=== PATIENT | male | born 1955 | race Caucasian/White ===

== ENCOUNTER 2016-07-26 21:52 | Emergency (ER) | payer BC ==
[~2016-07-26] VITALS: Ht 185.4 cm; Wt 104.3 kg
[~2016-07-26 21:52] MED LIST: ALPR0.254 PO; AMLO5TAB2 PO; ASCO500T2 PO; ASPI81TA2 PO; CALC-98 PO; ENAL20TA PO; ESCI10TA PO; HYDR12.58 PO; MULT1TAB52 PO
[2016-07-26] MEDS ORDERED: DEXAMETHASONE SOD PHOS 4 MG/ML VIAL IM ONE (22:30)
[2016-07-26] MEDS ORDERED: DIPHENHYDRAMINE HCL 25 MG CAPSULE PO ONE (22:30)
[2016-07-26] MEDS ORDERED: HYDROCODONE/APAP 5/325MG TABLET. PO ONE (23:45)
--- NOTE | 2016-07-26 23:59 | RAD ---
PROCEDURE Scrotal ultrasound 07/26/2016. HISTORY Scrotal swelling and pain. History of a rash for 1 week. TECHNIQUE COMPARISON FINDINGS The testes have normal echogenicity. There is increased blood flow bilaterally. There is also a heterogeneous swollen appearance of the epididymides, which also are hypervascular. Small hydroceles are seen on each side. There is no evidence of a scrotal abscess. There appears to be some swelling of the spermatic cords bilaterally as well. IMPRESSION Findings suggest bilateral epididymal orchitis. There is no evidence of testicular torsion or scrotal abscess. Electronically signed by: Harvey Pride (Jul 26, 2016 23:58:19)
[2016-07-27 00:13] LABS: BASO % 0 % (0-3); EOS % 1 % (0-3); HEMATOCRIT 44.9 % (39.0-53.0); HEMOGLOBIN 15.5 g/dL (13.0-17.5); LYMPH # 2.4 x10^3/uL (1.0-4.8); LYMPH % 30 % (24-48); MEAN CORPUSCULAR HEMOGLOBIN 32 pg (25-35); MEAN CORPUSCULAR HGB CONC 34 g/dL (31-37); MEAN CORPUSCULAR VOLUME 93 fL (79-100); MONO % 6 % (0-9); NEUT % 63 % (31-73); PLATELET COUNT 424 x10^3/uL (140-400); RED BLOOD COUNT 4.82 x10^6/uL (4.30-5.70); RED CELL DISTRIBUTION WIDTH 13.4 % (11.5-14.5)
[2016-07-27 00:22] LABS: PROTHROMBIN TIME PATIENT 12.7 SEC (11.7-14.0)
[2016-07-27 00:28] LABS: CALCIUM 8.9 mg/dL (8.5-10.1); CREATININE 1.1 mg/dL (0.7-1.3); GFR 68.1; POTASSIUM 3.8 mmol/L (3.5-5.1)
[2016-07-27 00:47] LABS: BILIRUBIN,URINE NEGATIVE (NEG); GLUCOSE,URINE NEGATIVE (NEG); NITRITE,URINE NEGATIVE (NEG); PROTEIN,URINE NEGATIVE (NEG-TRACE)
[2016-07-27] MEDS ORDERED: LEVO500T38 PO (01:02)
--- NOTE | 2016-07-27 01:02 | PHYS DOC ---
Past Medical History Past Medical History: Hypertension, Other Additional Past Medical Histor: spinal stenosis, PACEMAKER Past Surgical History: Other Additional Past Surgical Histo: back, spleenectomy, PACEMAKER Alcohol Use: Occasionally Drug Use: None Adult General Chief Complaint Chief Complaint: SKIN PROBLEM HPI HPI Patient is a 60 year old male who presents with leg rash & testicular pain. The patient reports 4 day history of painful red lesions to bilateral lower legs , now with itchy rash to left elbow, more new lesions to legs & abdomen, also having bilateral testicular pain & swelling. He also states this morning he had marked lip & tongue swelling that has since resolved completely. He denies fevers/chills, difficulty breathing, abdominal pain, nausea, vomiting, dysuria/ hematuria. Saw his PCP Dr. Collins at time of symptom onset & given prescription for prednisone which he has been taking as prescribed. He denies any new medications or environmental exposure. No history of previous similar symptoms. He takes enalapril for HTN. Review of Systems Review of Systems Constitutional: Denies fever or chills Eyes: Denies change in visual acuity HENT: Denies nasal congestion or sore throat, reports facial swelling now resolved. Respiratory: Denies cough or shortness of breath Cardiovascular: Denies chest pain GI: Denies abdominal pain, nausea, vomiting, or diarrhea : Denies dysuria or hematuria, reports testicular pain & swelling. Musculoskeletal: Denies back pain or joint pain Integument: Reports rash & skin lesions Neurologic: Denies headache, focal weakness or sensory changes Current Medications Current Medications Current Medications Medications (Trade) Dose Ordered Sig/Shanelle Start Time Stop Time Status Last Admin Dose Admin Acetaminophen/ Hydrocodone Bitart (Lortab 5/325) 2 tab 1X ONCE 07/26/16 23:45 07/26/16 23:46 DC 07/26/16 23:55 2 TAB Dexamethasone Sodium Phosphate (Decadron) 10 mg 1X ONCE 07/26/16 22:30 07/26/16 22:31 DC 07/26/16 22:29 10 MG Diphenhydramine HCl (Benadryl) 25 mg 1X ONCE 07/26/16 22:30 07/26/16 22:31 DC 07/26/16 22:29 25 MG Allergies Allergies Allergies Coded Allergies Type Severity Reaction Last Updated Verified No Known Drug Allergies 08/07/13 No Physical Exam Physical Exam Constitutional: Well developed, well nourished, no acute distress, non-toxic appearance. HENT: Normocephalic, atraumatic, bilateral external ears normal, oropharynx moist, nose normal. no face/tongue/lip swelling, airway patent. Eyes: conjunctiva normal, no discharge. Neck: supple, no stridor. Cardiovascular: RRR, no murmurs, no edema. Lungs & Thorax: LCTAB, no wheezing, no respiratory distress. Abdomen: soft, nontender, nondistended. : bilateral scrotal swelling with testicular tenderness bilaterally, no masses, no inguinal mass, no lesions, no erythema/warmth/swelling. Skin: nonblanching erythematous lesions scattered over lower extremities & abdomen. urticaria over left AC. Back: No tenderness. Extremities: No tenderness, no edema. Neurologic: Alert and oriented X 3 Current Patient Data Vital Signs Vital Signs Date Time Temp Pulse Resp B/P Pulse Ox O2 Delivery O2 Flow Rate FiO2 07/27/16 01:11 81 18 133/75 94 Room Air 07/26/16 21:56 96.1 96.1 Lab Values Laboratory Tests Test 07/26/16 23:50 07/26/16 23:53 Urine Collection Type Unknown Urine Color Yellow Urine Clarity Clear Urine pH 6.0 Urine Specific Channing 1.020 Urine Protein Negativemg/dL (NEG-TRACE) Urine Glucose (UA) Negativemg/dL (NEG) Urine Ketones (Stick) Negativemg/dL (NEG) Urine Blood Negative (NEG) Urine Nitrite Negative (NEG) Urine Bilirubin Negative (NEG) Urine Urobilinogen Dipstick 1.0mg/dL (0.2 mg/dL) Urine Leukocyte Esterase Negative (NEG) Urine RBC 6-10/HPF (0-2) Urine WBC 1-4/HPF (0-4) Urine Squamous Epithelial Cells Occ/LPF Urine Bacteria 0/HPF (0-FEW) Urine Mucus Marked/LPF White Blood Count 8.0x10^3/uL (4.0-11.0) Red Blood Count 4.82x10^6/uL (4.30-5.70) Hemoglobin 15.5g/dL (13.0-17.5) Hematocrit 44.9% (39.0-53.0) Mean Corpuscular Volume 93fL (79-100) Mean Corpuscular Hemoglobin 32pg (25-35) Mean Corpuscular Hemoglobin Concent 34g/dL (31-37) Red Cell Distribution Width 13.4% (11.5-14.5) Platelet Count 424x10^3/uL (140-400) H Neutrophils (%) (Auto) 63% (31-73) Lymphocytes (%) (Auto) 30% (24-48) Monocytes (%) (Auto) 6% (0-9) Eosinophils (%) (Auto) 1% (0-3) Basophils (%) (Auto) 0% (0-3) Neutrophils # (Auto) 5.1x10^3uL (1.8-7.7) Lymphocytes # (Auto) 2.4x10^3/uL (1.0-4.8) Monocytes # (Auto) 0.5x10^3/uL (0.0-1.1) Eosinophils # (Auto) 0.0x10^3/uL (0.0-0.7) Basophils # (Auto) 0.0x10^3/uL (0.0-0.2) Prothrombin Time 12.7SEC (11.7-14.0) Prothrombin Time INR 1.0 (0.8-1.1) PTT 27SEC (24-38) Sodium Level 138mmol/L (136-145) Potassium Level 3.8mmol/L (3.5-5.1) Chloride Level 99mmol/L (98-107) Carbon Dioxide Level 30mmol/L (21-32) Anion Gap 9 (6-14) Blood Urea Nitrogen 24mg/dL (8-26) Creatinine 1.1mg/dL (0.7-1.3) Estimated GFR (Cockcroft-Gault) 68.1 Glucose Level 155mg/dL (70-99) H Calcium Level 8.9mg/dL (8.5-10.1) Laboratory Tests 07/26/16 23:53 Laboratory Tests 07/26/16 23:53 EKG EKG [] Radiology/Procedures Radiology/Procedures PROCEDURE: TESTICULAR/SCROTUM PROCEDURE Scrotal ultrasound 07/26/2016. HISTORY Scrotal swelling and pain. History of a rash for 1 week. TECHNIQUE COMPARISON FINDINGS The testes have normal echogenicity. There is increased blood flow bilaterally. There is also a heterogeneous swollen appearance of the epididymides, which also are hypervascular. Small hydroceles are seen on each side. There is no evidence of a scrotal abscess. There appears to be some swelling of the spermatic cords bilaterally as well. IMPRESSION Findings suggest bilateral epididymal orchitis. There is no evidence of testicular torsion or scrotal abscess. Electronically signed by: Arabella Pride (Jul 26, 2016 23:58:19) DICTATED and SIGNED BY: ARABELLA PRIDE Jr, MD DATE: 07/26/16 9624 [] Course & Med Decision Making Course & Med Decision Making Pertinent Labs and Imaging studies reviewed. (See chart for details) The patient presents with vasculitis & testicular pain, also history of symptoms suggesting angioedema earlier today. No facial swelling at this time. He does appear to have a small area of urticaria in addition to the vasculitic lesions to lower extremities. Gave decadron, benadryl, & pain medication here. US shows epididymoorchitis bilaterally. The patient is well appearing, more comfortable after pain medication. Recommended that he discontinue enalapril due to history that suggests angioedema, continue prednisone & benadryl. Gave prescription for levaquin for epididymitis, recommend follow up with Dr. Stanley in the urology clinic. Early in his visit, I did briefly discuss with Dr. Collins & she is able to see the patient on Thursday for follow up. Patient instructed to return for high fever, severe abdominal pain, uncontrolled vomiting, face/tongue/lip swelling, difficulty breathing, any otherwise worsening condition. Discharged home in stable condition. [] Dragon Disclaimer Dragon Disclaimer This electronic medical record was generated, in whole or in part, using a voice recognition dictation system. Departure Departure Impression: Primary Impression: Epididymitis, bilateral Additional Impressions: Vasculitis Urticaria Disposition: HOME, SELF-CARE Condition: STABLE Referrals: MARY ANN COLLINS MD (PCP) FLAKO STANLEY DO Patient Instructions: Angioedema, Enjt-ot-Lzve, Epididymitis, Orchitis, Vasculitis Additional Instructions: You were seen in the emergency department today for several problems. You have vasculitis. Please continue taking the prescribed prednisone from Dr. Collins. There may also be an adverse reaction to the enalapril that you take for your blood pressure. Please immediately stop taking this medication. The ultrasound showed infection of the epididymis and inflammation of your testicles. Please take the prescribed antibiotic. Wear supportive undergarments. Follow-up with Dr. Collins on Thursday if possible. Also follow up with Dr. Stanley in the urology clinic in about 1 week. Return to the emergency department for face/tongue/lip swelling, difficulty breathing, severe abdominal pain, uncontrolled vomiting, any otherwise worsening condition. Scripts Hydrocodone/Apap 5-325 (Holden 5-325 Tablet)1 Each Tablet1 Tab PO PRN Q6HRS PRN PAIN #10 TAB Prov:NADINE WEBER MD 07/27/16 Levofloxacin (Levaquin)500 Mg [id number] Mg PO BID #20 TAB Prov:NADINE WEBER MD 07/27/16 Problem Qualifiers NADINE WEBER MD Jul 27, 2016 01:02
[2016-07-27] MEDS ORDERED: HYDR-971 PO (01:05)
[2016-07-27 01:11] VITALS: BP 133/75
[2016-07-27 01:13] LABS: BACTERIA,URINE 0 /HPF (0-FEW); SQUAMOUS EPITHELIAL CELL,UR OCC /LPF
== END 2016-07-27 01:12 | disposition home or self-care (01) ==
LOC: ER 21:52
DX: N45.1 Epididymitis (principal); I77.6 Arteritis, unspecified; L50.9 Urticaria, unspecified; I10 Essential (primary) hypertension; M48.00 Spinal stenosis, site unspecified; Z90.81 Acquired absence of spleen; Z95.0 Presence of cardiac pacemaker; Z98.890 Other specified postprocedural states
CPT/HCPCS: 36415; 76870; 80048; 81001; 85027; 85610; 85730; 96372; 99285; J1100; Q0163

== ENCOUNTER → 2017-11-02 | Outpatient (CLI) | payer BC | END | disposition home or self-care (01) | LOC: RT 10:01 | DX: G47.33 Obstructive sleep apnea (adult) (pediatric) (principal); G47.34 Idiopathic sleep related nonobstructive alveolar hypoventilation; I10 Essential (primary) hypertension; E78.5 Hyperlipidemia, unspecified; E78.00 Pure hypercholesterolemia, unspecified | CPT/HCPCS: G0399 ==

== ENCOUNTER → 2017-12-10 | Outpatient (CLI) | payer BC ==
[~2017-12-10] MED LIST changes: -AMLO5TAB2 PO; +AMLO5TAB7 PO; +ASPI-630 PO; -ASPI81TA2 PO; -ESCI10TA PO; +ESCITALOPRAM OX10 MG PO; +HYDR-971 PO; +LEVO500T59 PO
--- NOTE | 2017-12-15 10:36 | SLEEP ---
DATE OF STUDY: 12/10/2017 ATTENDING PHYSICIAN: Dr. Collins. The patient is a 62-year-old who weighs 245 pounds with a BMI of 32. The patient has severe subjective hypersomnia with an Milford score of 17. The patient had a home sleep study on 11/04/2017 and was found to have severe OTILIO at an AHI of 38 per hour. The patient returned to sleep lab for in-lab titration study. During the night study, the patient spent 413 minutes in bed and slept for 381 minutes with a sleep efficiency of 92%. Sleep latency was 5 minutes with a REM latency of 159 minutes. Overall, sleep architecture showed normal stage 1 and stage 2 sleep, increased slow wave and normal REM sleep. EKG monitoring revealed normal sinus rhythm. Average heart rate was 72 beats per minute, no sustained arrhythmias were observed. PLMS were seen at an index of 97 per hour and 9 per hour caused EEG arousals. The patient was started on CPAP at 5 cm water and titrated up to 11 cm water. At the final pressure, the patient slept for 193 minutes. The patient had supine as well as REM sleep. The patient's AHI was reduced to 0 per hour and oxygen saturations remained above 92%. The patient used a medium size nasal mask. IMPRESSION: 1. Severe sleep apnea diagnosed by home sleep study. 2. Severe PLMS at an index of 97 per hour and 9 per hour caused EEG arousals. RECOMMENDATIONS: 1. CPAP at 11 cm water should be used on a nightly basis. It completely eliminated the patient's sleep apnea. 2. Follow up in 4-6 weeks to assess compliance with CPAP and to document clinical improvement. 3. Weight loss is strongly advised. 4. Avoid SENIOR CLINICAL DATA COORDINATOR depressants. 5. Caution regarding driving until symptoms of sleep apnea resolve with the use of CPAP. 6. The patient should also be further evaluated for symptoms of restless legs during the day. CORY DE LEON MD DR: ZAYRA/danielle JOB#: [id number] / [id number] MARY ANN Garcia MD
== END | disposition home or self-care (01) ==
LOC: RT 18:44
PROVIDERS: ATTEND Family Medicine
DX: G47.33 Obstructive sleep apnea (adult) (pediatric) (principal); G47.61 Periodic limb movement disorder; I10 Essential (primary) hypertension; E78.00 Pure hypercholesterolemia, unspecified; Z86.010 Personal history of colon polyps; Z95.0 Presence of cardiac pacemaker; Z90.81 Acquired absence of spleen
CPT/HCPCS: 95811

== ENCOUNTER → 2018-02-08 | Day surgery (SDC) | payer BC ==
[~2018-02-08] VITALS: Ht 185.4 cm; Wt 109.3 kg
[~2018-02-08] MED LIST changes: +ATOR10TA60 PO; +CARV6.252 PO; +CETI10TA16 PO; +DESFLURANE 31 TO 60 MINUTES IH ONE; +DEXAMETHASONE SOD PHOS 20 MG/5 ML VIAL. ONE; +FAMOTIDINE 20 MG/2 ML VIAL ONE; +HYDROmorphone 2 MG/ML VIAL IV PRN; +LIDOCAINE 1% PF 2 ML VIAL. ID PRN; +LIDOCAINE 2% PF Vial for OR 5 ML VIAL. ONE; +METF500T16 PO; +MIDAZOLAM HCL/PF 2 MG/2 ML VIAL. ONE; +MORPHINE SULFATE 2 MG/ML VIAL. IV PRN; +ONDANSETRON PF 4 MG/2 ML VIAL. ONE; +PRAM0.255 PO; +PROCHLORPERAZINE 10 MG/2 ML VIAL. IV PRN; +PROPOFOL 20 ML IV ONE; +SUCCINYLCHOLINE 200 MG/10 ML VIAL. ONE; +ePHEDrine PF IN SALINE 50 MG/5 ML DISP.SYRIN IV ONE; +fentaNYL PF VIAL 100 MCG/2 ML VIAL IV PRN; +fentaNYL PF VIAL 100 MCG/2 ML VIAL ONE
[2018-02-08] MEDS: IV RINGERS,LACTATED 1000ML 1,000 ML IV SCH ×3 (08:09→08:19)
--- NOTE | 2018-02-08 10:57 | PDOC4 ---
Operative Note Operative Note Operative Note: Preoperative Diagnosis: Posterior neck, back masses Postoperative Diagnosis: Same Procedure: Excision of posterior neck, back masses Surgeon: Cal Anesthesia: Gen. EBL: 10 mL Specimen: posterior neck mass, 6 X 4.5 cm, back mass 6 X 3.5 cm Drains: none Complications: none Indication: The patient is a 62-year-old male who is referred due to symptomatic masses one located in the posterior neck and the other in the upper back toward the right. He was offered surgical resection. The risks of surgery were discussed which include bleeding, infection, recurrence, pain, potential need for additional surgery or procedure. He understands and would like to proceed. Description: The patient was taken to the operating room and placed supine on the operating table. Gen. anesthesia was performed. He was then placed with his left side down using a sheth bag on the operating table. One mass was located near the midline along the posterior neck the other in the upper back just to the right of midline. We were able to prep both areas together using ChloraPrep and he was draped in a standard surgical manner. A transverse incision was made initially overlying the skin of the posterior neck mass. Combination of cautery and sharp dissection were carried down to the mass. The mass was mobilized from the surrounding tissues and was comprised of adipose tissue consistent with a lipoma. The mass was fully excised and measured 6 x 4.5 cm. The mass was sent to pathology. Several small bleeding points were controlled with cautery. Hemostasis was then good. The subcutaneous tissue was closed with 3-0 Vicryl. The skin was approximated with 4-0 Monocryl. We then directed our attention to the second mass located in the upper back to the right of midline. An incision was made in the skin with a scalpel and dissection was carried down through the subcutaneous cutaneous tissue. This mass was fairly deep residing just superficial to the muscle. This was mobilized from the surrounding tissues and excised. The mass measured 6 x 3.5 cm and it was sent to pathology. Hemostasis was achieved with cautery. The subcutaneous tissue was then closed with 3-0 Vicryl and skin approximated with 4-0 Monocryl. Steri-Strips and dressings were applied at both locations. The patient tolerated the procedure well and was sent to the recovery room in stable condition. At the end of the case all counts were correct. JEOVANNY MENDOZA MD Feb 08, 2018 10:57
--- NOTE | 2018-02-08 10:59 | DISCH ---
DISCHARGE INSTRUCTIONS Condition on Discharge Condition on Discharge: Stable Activity After Discharge Activity Instructions for Disc: Avoid exertion Diet after Discharge Diet after Discharge: Regular Wound Incision Care Wound/Incision Care: Other, see below (keep dressing clean and dry X 72 hours, may then remove and shower) Follow-Up Follow up with: Dr Mendoza in 2 weeks in the office, call for appt JEOVANNY MENDOZA MD Feb 08, 2018 10:59
[2018-02-08 11:55] VITALS: BP 124/59
--- NOTE | 2018-02-09 18:07 | PATHOLOGY ---
[facility] Accession Number: [id number] . 01 Material submitted: . PART A: NECK MASS PART B: BACK MASS . 01 Clinical history: . None provided . 02 Diagnosis: A. Fibroadipose tissue, neck mass: - Fibrolipoma. . B. Fibroadipose tissue, back mass: - Lipoma. . (JPM/at;02/09/2018) QTA/02/09/2018 . 02 Comment: There is no evidence of malignancy. . 02 Electronically signed: . Murali Phillips MD, Pathologist NPI- [id number] . 01 Gross description: . A. The specimen is received in formalin, labeled "Danette, Donis, neck mass", is a roughly oval, decker-yellow, indurated tissue measuring 5.0 x 4.0 x 2.7 cm. The specimen is covered by a thin decker-pink membrane. The specimen is inked black, serially sectioned to show a predominantly decker homogeneous cut surface with solis-white fibrous strand interspersed. Income Tax Adjuster tissue is submitted in A1-A6. . B. The specimen is received in formalin, labeled "Danette, Donis, back mass", is a roughly oval, disrupted decker-yellow, indurated tissue measuring 5.0 x 3.6 x 1.4 cm. The specimen is partially covered by a thin decker-pink membrane. The specimen is inked black, serially sectioned to show a decker-pink cut surface. Income Tax Adjuster tissue is submitted in B1-B6. ([facility]; 02/08/2018) mass", SHS/SHS . 02 Pathologist provided ICD-10: D17.79 . 02 CPT . 005646, 699158 Specimen Comment: A courtesy copy of this report has been sent to Specimen Comment: [phone], . Specimen Comment: Report sent to / DR ZUÑIGA Specimen Comment: A duplicate report has been generated due to demographic updates. Performed at: [address] [facility] [id number] MD Lawrence Figueroa MD Phone: [phone] Performed at: [address] [facility] [address] [place], [place] [id number] MD Murali Phillips MD Phone: [phone]
== END | disposition home or self-care (01) ==
LOC: SURG 07:21
PROVIDERS: ATTEND Surgery
DX: D17.0 Benign lipomatous neoplasm of skin and subcutaneous tissue of head, face and neck (principal); D17.1 Benign lipomatous neoplasm of skin and subcutaneous tissue of trunk; E11.9 Type 2 diabetes mellitus without complications; I10 Essential (primary) hypertension; K75.9 Inflammatory liver disease, unspecified; F32.9 Major depressive disorder, single episode, unspecified; F41.9 Anxiety disorder, unspecified; Z98.890 Other specified postprocedural states; Z95.1 Presence of aortocoronary bypass graft; Z80.0 Family history of malignant neoplasm of digestive organs; Z82.49 Family history of ischemic heart disease and other diseases of the circulatory system; Z88.8 Allergy status to other drugs, medicaments and biological substances; Z79.899 Other long term (current) drug therapy; Z79.82 Long term (current) use of aspirin; Z87.891 Personal history of nicotine dependence
CPT/HCPCS: 21552; 21931; 82962; J0330; J0690; J1100; J2001; J2250; J2405; J2704; J3010; J3490; 88304

== ENCOUNTER → 2018-05-19 | Outpatient (CLI) | payer BC ==
[2018-02-08 11:55] VITALS: BP 124/59
[~2018-05-19] MED LIST changes: +AMLO5TAB10 PO; -AMLO5TAB7 PO; +CARV6.2511 PO; -CARV6.252 PO; -DESFLURANE 31 TO 60 MINUTES IH ONE; -DEXAMETHASONE SOD PHOS 20 MG/5 ML VIAL. ONE; -FAMOTIDINE 20 MG/2 ML VIAL ONE; +HYDR-3164 PO; -HYDR-971 PO; -HYDROmorphone 2 MG/ML VIAL IV PRN; -LIDOCAINE 1% PF 2 ML VIAL. ID PRN; -LIDOCAINE 2% PF Vial for OR 5 ML VIAL. ONE; -MIDAZOLAM HCL/PF 2 MG/2 ML VIAL. ONE; -MORPHINE SULFATE 2 MG/ML VIAL. IV PRN; -ONDANSETRON PF 4 MG/2 ML VIAL. ONE; -PROCHLORPERAZINE 10 MG/2 ML VIAL. IV PRN; -PROPOFOL 20 ML IV ONE; -SUCCINYLCHOLINE 200 MG/10 ML VIAL. ONE; -ePHEDrine PF IN SALINE 50 MG/5 ML DISP.SYRIN IV ONE; -fentaNYL PF VIAL 100 MCG/2 ML VIAL IV PRN; -fentaNYL PF VIAL 100 MCG/2 ML VIAL ONE
--- NOTE | 2018-05-19 12:52 | CARD ---
MR#: [id number] Date of Study: 05/19/2018 Ordering Physician: PIETER MARTINEZ, Referring Physician: PIETER MARTINEZ, Tech: Jovita Senior REMIGIO APPROVED REPORT EXAM: Two-dimensional and M-mode echocardiogram with Doppler and color Doppler. Other Information Quality : Fair INDICATION Hypertension/HCVD Carotid Artery Hypersensitivity Surgery/Intervention Pacemaker: Date: 2015 RISK FACTORS Hypertension 2D DIMENSIONS RVDd2.7 (2.9-3.5cm)Left Atrium(2D)3.5 (1.6-4.0cm) IVSd0.9 (0.7-1.1cm)Aortic Root(2D)2.7 (2.0-3.7cm) LVDd5.3 (3.9-5.9cm)LVOT Diameter2.2 (1.8-2.4cm) PWd0.9 (0.7-1.1cm)LVDs3.1 (2.5-4.0cm) FS (%) 30.0 %SV97.3 ml LVEF(%)60.0 (>50%) Aortic Valve AoV Peak Howard.145.9cm/sAoV VTI29.7cm AO Peak GR.8.5mmHgLVOT Peak Howard.142.5cm/s LVOT VTI 29.74cmAO Mean GR.4mmHg GAURI (VMAX)3.52uj4CIJ (VTI)3.68cm2 Mitral Valve MV E Lyxiueod132.9cm/sMV DECEL FIFW737er MV A Nimeeumg41.4cm/sMV WQF72cn E/A Ratio1.1MVA (PHT)3.39cm2 TDI E/Lateral E'13.0E/Medial E'12.6 Tricuspid Valve TR P. Bxkzaipf806wo/sRAP FGFOZYMD0mtOb TR Peak Gr.54fxJgMUWM19zsYx Pulmonary Vein S1 Odepvdrc54.8cm/sD2 Yjfxvaas62.1cm/s LEFT VENTRICLE The left ventricle is normal size. There is normal left ventricular wall thickness. The left ventricu lar systolic function is normal. The Ejection Fraction is 55-60%. There is normal LV segmental wall m otion. The left ventricular diastolic function and filling is normal for age. RIGHT VENTRICLE The right ventricle is normal size. The right ventricular systolic function is normal. There is a pac emaker lead in the right ventricle. ATRIA The left atrium size is normal. The right atrium size is normal. A pacemaker is seen in the right atr ium consistent with history. The interatrial septum is intact with no evidence for an atrial septal d efect or patent foramen ovale as noted on 2-D or Doppler imaging. AORTIC VALVE The aortic valve is calcified but opens well. Doppler and Color Flow revealed no significant aortic r egurgitation. There is no significant aortic valvular stenosis. MITRAL VALVE The mitral valve is normal in structure and function. There is no evidence of mitral valve prolapse. There is no mitral valve stenosis. Doppler and Color-flow revealed trace mitral regurgitation. TRICUSPID VALVE The tricuspid valve is normal in structure and function. Doppler and Color Flow revealed mild tricusp id regurgitation. There is mild pulmonary hypertension. The PA pressure was estimated at 37 mmHg. The re is no tricuspid valve stenosis. PULMONIC VALVE The pulmonic valve is not well visualized. Doppler and Color Flow revealed trace to mild pulmonic poncho vular regurgitation. There is no pulmonic valvular stenosis. GREAT VESSELS The aortic root is normal in size. The ascending aorta is normal in size. The IVC is normal in size a nd collapses >50% with inspiration. PERICARDIAL EFFUSION There is no evidence of significant pericardial effusion. Critical Notification Critical Value: No <Conclusion> The left ventricular systolic function is normal. The Ejection Fraction is 55-60%. There is normal LV segmental wall motion. Pacemaker lead is seen in the right atrium and right ventricle consistent with history. Trace mitral regurgitation. Mild tricuspid regurgitation. The PA pressure was estimated at 37 mmHg. There is no evidence of significant pericardial effusion. Signed by : Joshua Hilario, Electronically Approved : 05/19/2018 12:51:47
== END | disposition home or self-care (01) ==
LOC: ECHO 08:03
PROVIDERS: ATTEND Internal Medicine Cardiovascular Disease
DX: I08.8 Other rheumatic multiple valve diseases (principal); G90.01 Carotid sinus syncope; I27.20 Pulmonary hypertension, unspecified; I10 Essential (primary) hypertension
CPT/HCPCS: 93306

== ENCOUNTER → 2019-10-14 | Outpatient (CLI) | payer MEDICARE, BC ==
[2018-02-08 11:55] VITALS: BP 124/59
[~2019-10-14] MED LIST changes: -ASCO500T2 PO; +ASCO500T4 PO; +MULT-445 PO; -MULT1TAB52 PO
--- NOTE | 2019-10-14 16:00 | NUR ---
medtronic rep here to adjust pacemaker for MRI. pt tolerated MRI well and PM rep adjust PPM back to previous settings. hr-95, b/p 151/90,spo2 92% .
--- NOTE | 2019-10-14 17:06 | RAD ---
EXAM: Lumbar spine MRI without contrast. HISTORY: Lumbar radiculopathy. TECHNIQUE: Multiplanar, multisequence magnetic resonance imaging of the lumbar spine was performed without contrast. COMPARISON: None. FINDINGS: There is mild lumbar scoliosis. There is no significant listhesis. There is degenerative endplate remodeling at multiple levels. There are few endplate Schmorl's nodes. There are multiple osseous hemangiomas. There is no suspicious osseous lesion. The conus terminates at L1-L2. At L1-L2, there is no stenosis. At L2-L3, there is no stenosis. At L3-L4, there is endplate remodeling. There is mild bilateral facet arthropathy. There is slight hypertrophy of the ligamentum flavum. There is mild right foraminal stenosis. At L4-L5, there is a broad-based posterior central to right paracentral disc protrusion and annular tear. There is also a right foraminal to extra foraminal disc protrusion and annular tear with osteophyte complex. This is superimposed on a disc bulge and endplate remodeling. There is mild bilateral facet arthropathy. There is mild right foraminal stenosis with abutment of the exiting right L4 nerve root. There is moderate to severe central canal stenosis. At L5-S1, there is a disc bulge with bilateral foraminal to extra foraminal disc osteophyte complexes. There is mild bilateral facet arthropathy. There is minimal bilateral foraminal stenosis with abutment of the exiting L5 nerve roots. IMPRESSION: 1. Multilevel degenerative change involving the lumbar spine, described in detail above. This is associated with mild right foraminal stenosis at L3-L4, mild right foraminal stenosis with abutment of the exiting right L4 nerve root and moderate to severe central canal stenosis at L4-5, and minimal bilateral foraminal stenosis with abutment of the exiting L5 nerve roots at L5-S1. 2. Mild scoliosis. Electronically signed by: January Ferrell MD (10/14/2019 5:03 PM) [facility]
== END | disposition home or self-care (01) ==
LOC: MRI 14:48
PROVIDERS: ATTEND Family Medicine
DX: M47.26 Other spondylosis with radiculopathy, lumbar region (principal); M48.07 Spinal stenosis, lumbosacral region; M41.86 Other forms of scoliosis, lumbar region; M51.46 Schmorl's nodes, lumbar region; D18.09 Hemangioma of other sites; M25.78 Osteophyte, vertebrae
CPT/HCPCS: 72148

== ENCOUNTER → 2019-12-13 | Outpatient (CLI) | payer MEDICARE, BC ==
[2018-02-08 11:55] VITALS: BP 124/59
[~2019-12-13] MED LIST changes: +DOCU-109 PO; -ENAL20TA PO; +ENAL20TA10 PO; +METH-38 PO
--- NOTE | 2019-12-13 15:59 | EKG ---
[facility] [address] [place] [address] Test Date: 2019-12-13 Test Time: 15:55:23 Pat Name: AMBAR HERNANDES Department: Room: Gender: M Card Checker: [place] : 1955 Requested By: WALE LI Order Number: [id number] Reading MD: Romero Patel MD Measurements Intervals Urania Rate: 63 P: 43 ID: [id number] QRS: 60 QRSD: 100 T: 34 QT: 432 QTc: 445 Interpretive Statements SINUS RHYTHM Electronically Signed On 12-15-2019 14:53:53 CDT by Romero Patel MD
[2019-12-13 18:37] LABS: ALBUMIN 3.6 g/dL (3.4-5.0); CALCIUM 9.1 mg/dL (8.5-10.1); CREATININE 0.9 mg/dL (0.7-1.3); GFR 84.7; POTASSIUM 3.1 mmol/L (3.5-5.1); TOTAL BILIRUBIN 0.2 mg/dL (0.2-1.0); TOTAL PROTEIN 7.2 g/dL (6.4-8.2)
[2019-12-13 18:46] LABS: BASO % 1 % (0-3); EOS # 0.1 x10^3/uL (0.0-0.7); EOS % 2 % (0-3); HEMATOCRIT 42.4 % (39.0-53.0); HEMOGLOBIN 14.8 g/dL (13.0-17.5); LYMPH # 2.1 x10^3/uL (1.0-4.8); LYMPH % 27 % (24-48); MEAN CORPUSCULAR HEMOGLOBIN 32 pg (25-35); MEAN CORPUSCULAR HGB CONC 35 g/dL (31-37); MEAN CORPUSCULAR VOLUME 92 fL (79-100); MONO # 0.7 x10^3/uL (0.0-1.1); MONO % 9 % (0-9); NEUT # 4.9 x10^3/uL (1.8-7.7); NEUT % 62 % (31-73); PLATELET COUNT 404 x10^3/uL (140-400); RED BLOOD COUNT 4.62 x10^6/uL (4.30-5.70); RED CELL DISTRIBUTION WIDTH 13.7 % (11.5-14.5); WHITE BLOOD COUNT 7.9 x10^3/uL (4.0-11.0)
[2019-12-14 01:08] LABS: HEMOGLOBIN A1C 6.6 % (4.8-5.6)
== END ==
LOC: SURGPAT 14:16
PROVIDERS: ATTEND Neurological Surgery
DX: Z01.812 Encounter for preprocedural laboratory examination (principal); M48.062 Spinal stenosis, lumbar region with neurogenic claudication; Z20.828 Contact with and (suspected) exposure to other viral communicable diseases
CPT/HCPCS: 80053; 83036; 85025; 87641; 93005; U0003

== ENCOUNTER 2019-12-19 08:05 | Day surgery (SDC) | payer MEDICARE, BC ==
--- NOTE | 2019-12-16 14:06 | PREOP HP ---
DATE OF SERVICE: 12/19/2019. PREOPERATIVE HISTORY AND PHYSICAL DATE OF SURGERY: 12/19/2019. HISTORY OF PRESENT ILLNESS: The patient is a pleasant 64-year-old who has difficulty with low back pain. The pain radiates into his posterior thigh and leg bilaterally. The left side is more involved than the right. He does not report numbness in his lower extremities. He says he has generalized weakness. The problem has been present for about 6 months. It began spontaneously. He rates his pain as a 5/10. Sitting or lying down increases his pain. Standing seems to help him. PAST MEDICAL HISTORY: Arthritis, cold sores or fever blisters, permanent pacemaker, hepatitis, hypertension, and Polanco's palsy. PAST SURGICAL HISTORY: Splenectomy in 1967, lumbar surgery in 2011, permanent pacemaker placement in 2013, Polanco's palsy in 2014. FAMILY HISTORY: Cancer, heart problems or disease, hypertension. SOCIAL HISTORY: Retired. . Exercises weekly. Denies substance abuse. Current smoker. Drinks alcohol 1-2 times per week. Drinks coffee and tea daily. ALLERGIES: No known drug allergies. CURRENT MEDICATIONS: Amlodipine, carvedilol, hydrochlorothiazide, metformin, calcium plus vitamin D, multivitamin, escitalopram oxalate, pramipexole dihydrochloride, aspirin 81 mg, atorvastatin, calcium. REVIEW OF SYSTEMS: A 12-point review of systems was obtained and is noncontributory except that mentioned above. PHYSICAL EXAMINATION: NEUROSURGERY EXAMINATION: GENERAL APPEARANCE: Alert, pleasant, no acute distress. HEAD: Normocephalic, atraumatic. SKIN: Warm and dry, well-healed lumbar incision. MUSCULOSKELETAL: Lumbar paraspinal muscle bulk is normal, restricted range of motion of the lumbar spine, wbrh-nb-cbedyxae tenderness of lower lumbar spine palpation, normal range of motion of the lower extremities bilaterally. EXTREMITIES: No clubbing, cyanosis or edema. NEUROLOGIC: Alert, oriented x 3, normal recent and remote memory, strength 5/5 in bilateral lower extremities, sensory was intact to light touch in bilateral lower extremities, reflexes are present and symmetric in lower extremities bilaterally, negative straight leg raising bilaterally, unsteady gait. IMAGING: I reviewed his lumbar MRI scan. On that study, there are significant degenerative changes throughout the lumbar spine. At L4-L5, there is severe central canal stenosis. There is additionally disk bulging on the right, which extends to the right neural foramen. There is some narrowing of the right neural foramen at that level. ASSESSMENT/ PLAN: I believe the problem primarily is central canal stenosis at L4-L5. I did place the patient in lumbar physical therapy, which he attempted. After a few failed visits, it was decided that the patient should undergo bilateral lumbar microdecompressive surgery. I did discuss the surgery and the risks as well as the expected postoperative period with the patient. He understands. He would like to proceed. We will make the arrangements. WALE LI MD DR: SHERI/danielle JOB#: [id number] / [id number] AXEL
[~2019-12-19] VITALS: Ht 185.4 cm; Wt 111.6 kg
[~2019-12-19 08:05] MED LIST changes: +BACITRACIN 50,000 UNIT in IV NORMAL SALINE 1000ML BAG 1,000 ML IRR ONE; +BUPIVACAINE-EPI 0.5%-1:200000 MPF 30 ML VIAL. ONE; -DOCU-109 PO; +GELATIN SPONGE SIZE 100. ONE; +HYDROmorphone 2 MG/ML VIAL IV PRN; +IV RINGERS,LACTATED 1000ML 1,000 ML IV SCH; +KETOROLAC 60 MG/2 ML VIAL. ONE; +LIDOCAINE 1% PF 2 ML VIAL. ID PRN; -METH-38 PO; +MORPHINE SULFATE 2 MG/ML VIAL. IV PRN; +ONDANSETRON PF 4 MG/2 ML VIAL. IV PRN; +PROCHLORPERAZINE 10 MG/2 ML VIAL. IV PRN; +THROMBIN TOPICAL 20,000 UNIT SPRAY.SYRN KIT TP ONE; +fentaNYL PF VIAL 100 MCG/2 ML VIAL IV PRN
[2019-12-19] MEDS ORDERED: DESFLURANE > 120 MINUTES IH ONE (08:21)
[2019-12-19] MEDS ORDERED: NEOSTIGMINE METHYLSULFATE 5 MG/5 ML SYRINGE. ONE (08:22)
[2019-12-19] MEDS ORDERED: fentaNYL PF VIAL 100 MCG/2 ML VIAL ONE (08:22)
[2019-12-19] MEDS ORDERED: MIDAZOLAM HCL/PF 2 MG/2 ML VIAL. ONE (08:22)
[2019-12-19] MEDS ORDERED: GLYCOPYRROLATE 1 MG/5 ML VIAL. ONE (08:22)
[2019-12-19] MEDS ORDERED: REMIFENTANIL 2 MG VIAL. IV ONE (08:22)
[2019-12-19] MEDS ORDERED: ROCURONIUM 50 MG/5 ML VIAL. ONE (08:22)
[2019-12-19] MEDS ORDERED: DEXAMETHASONE SOD PHOS 20 MG/5 ML VIAL. ONE (08:25)
[2019-12-19] MEDS ORDERED: LIDOCAINE 2% PF 5 ML VIAL. ONE (08:25)
[2019-12-19] MEDS ORDERED: PHENYLEPHRINE 10 MG/ML VIAL. ONE (08:25)
[2019-12-19] MEDS ORDERED: ONDANSETRON PF 4 MG/2 ML VIAL. ONE (08:25)
[2019-12-19] MEDS ORDERED: PROPOFOL 10 MG/ML (20ML) VIAL. IV ONE (08:25)
[2019-12-19] MEDS ORDERED: PROPOFOL 50 ML IV ONE ×3 (08:25→10:59)
[2019-12-19] MEDS ORDERED: INSULIN LISPRO 100 UNIT/ML 3ML VIAL for OP,RR ONLY. SQ PRN (08:45)
[2019-12-19] MEDS ORDERED: INSULIN LISPRO 100 UNIT/ML 3ML VIAL for OP,RR ONLY. SQ ONE (09:00)
[2019-12-19] MEDS ORDERED: REMIFENTANIL 1 MG VIAL. IV ONE (10:56)
[2019-12-19] MEDS ORDERED: HYDR-3164 PO (11:39)
[2019-12-19] MEDS ORDERED: DOCU-109 PO (11:39)
[2019-12-19] MEDS ORDERED: METH-38 PO (11:39)
--- NOTE | 2019-12-19 11:40 | DISCH ---
DISCHARGE INSTRUCTIONS Condition on Discharge Condition on Discharge: Stable Activity After Discharge Activity Instructions for Disc: Activity as tolerated, Avoid exertion Other activity instructions: no driving for a week Bathing Instructions: Shower-keep dressing dry Lifting Instructions after Dis: No heavy lifting, No pulling or pushing, Do not lift >10 pounds Diet after Discharge Diet after Discharge: Regular Wound Incision Care Wound/Incision Care: Ice to area for comfort, Other, see below Other wound/incision instructi: may remove in 24 hours if dry, leave steri strips in place Contacting the after DC Call your doctor for: Concerns you may have Follow-Up Follow up with: Dr. Li's nurse in 2 weeks [phone] WALE LI MD Dec 19, 2019 11:40
--- NOTE | 2019-12-19 11:59 | OP ---
DATE OF SURGERY: 12/19/2019 PREOPERATIVE DIAGNOSES: Hypertrophic facet and ligament plus disc bulging at L4-L5 resulting in severe lumbar spinal stenosis and neurogenic claudication. POSTOPERATIVE DIAGNOSES: Hypertrophic facet and ligament plus disc bulging at L4-L5 resulting in severe lumbar spinal stenosis and neurogenic claudication. OPERATION PERFORMED: Bilateral hemilaminotomies with decompression of dura and nerve root, L4-L5. The operation was done with an EMG monitoring, SSEP monitoring, fluoroscopy, microscopic dissection. SURGEON: Rob Li M.D. FACILITIES MAINTENANCE TECHNICIAN: GONZALEZ Conway, assisted with the exposure, the microdecompression as well as the closure. OPERATIVE INDICATIONS: The patient is a pleasant 64-year-old, who developed intractable back and left greater than right leg pain, which failed conservative measures. He has above-mentioned findings on imaging studies and I recommended lumbar surgery. He understood the risks and benefits, he wished to go ahead. DESCRIPTION OF PROCEDURE: Following general endotracheal anesthesia, the patient was positioned prone on the Will table. Lumbar region prepped and draped in a standard fashion. FABIÁN hose and AV impulse boots were applied for DVT prophylaxis. The microscope was draped. Fluoroscopy was draped and brought into the field. Monitoring was established. Ancef 2 grams was given less than 1 hour prior to initiation of the surgery. Using fluoroscopic guidance, a portion of his previous incision from a previous surgery. The incision was extended superiorly a short distance at L4-L5. I dissected down and reflected the paraspinal muscles and placed a [place] microdisk retractor on the left and brought in the microscope. I burred down a generous hemilaminotomy and then peeled away the very thickened ligamentum flavum and performed a partial foraminotomy. The disc was bulging, but rock like in consistency and no discectomy was warranted. The amount of bulging was not significant. I then went to the right side and performed the identical operation on the right side and obtained the exposure, placed the retractor, brought in the microscope. Using microscopic technique, I burred down a generous hemilaminotomy and partial foraminotomy. I exposed the dura and the exiting root. On this side, again, there was disc bulging, but it was heavily calcified and no discectomy was warranted. I exposed the entire region very carefully and widely and I assured myself that the roots and dura were under no significant pressure. I irrigated and then I removed the retractor and obtained hemostasis in the muscle as I had done on the opposite side. I irrigated further. I closed the wound in layers with absorbable suture. The skin was closed with 4-0 subcuticular stitch. The surgery went very well and the patient was awakened uneventfully. I was quite pleased with the surgery. ROB LI MD DR: SHERI/danielle JOB#: [id number] / [id number] AXEL
[2019-12-19 13:03] VITALS: BP 140/79
[2019-12-19] MEDS ORDERED: HYDROcodone/APAP 5/325MG 1 TAB TABLET PO ONE (13:15)
== END 2019-12-19 14:05 | disposition home or self-care (01) ==
LOC: SURG 08:05
PROVIDERS: ATTEND Neurological Surgery
DX: M48.062 Spinal stenosis, lumbar region with neurogenic claudication (principal); M19.90 Unspecified osteoarthritis, unspecified site; I10 Essential (primary) hypertension; E11.9 Type 2 diabetes mellitus without complications; Z88.8 Allergy status to other drugs, medicaments and biological substances; Z87.891 Personal history of nicotine dependence; Z79.899 Other long term (current) drug therapy; Z79.82 Long term (current) use of aspirin; Z82.49 Family history of ischemic heart disease and other diseases of the circulatory system; Z79.84 Long term (current) use of oral hypoglycemic drugs
CPT/HCPCS: 36415; 63030; 82962; 84132; 97116; 97162; 97530; A7015; J0690; J1100; J1815; J1885; J2250; J2370; J2405; J2704; J2710; J3010; J3490; J7030; 76000; 88304; 88311

== ENCOUNTER → 2020-03-19 | Outpatient (CLI) | payer MEDICARE, BC ==
[~2020-03-19] MED LIST changes: +AMLO-186 PO; -AMLO5TAB10 PO; -BACITRACIN 50,000 UNIT in IV NORMAL SALINE 1000ML BAG 1,000 ML IRR ONE; -BUPIVACAINE-EPI 0.5%-1:200000 MPF 30 ML VIAL. ONE; +DOCU-109 PO; -GELATIN SPONGE SIZE 100. ONE; -HYDROmorphone 2 MG/ML VIAL IV PRN; -IV RINGERS,LACTATED 1000ML 1,000 ML IV SCH; -KETOROLAC 60 MG/2 ML VIAL. ONE; -LIDOCAINE 1% PF 2 ML VIAL. ID PRN; +METH-38 PO; -MORPHINE SULFATE 2 MG/ML VIAL. IV PRN; -ONDANSETRON PF 4 MG/2 ML VIAL. IV PRN; -PROCHLORPERAZINE 10 MG/2 ML VIAL. IV PRN; -THROMBIN TOPICAL 20,000 UNIT SPRAY.SYRN KIT TP ONE; -fentaNYL PF VIAL 100 MCG/2 ML VIAL IV PRN
--- NOTE | 2020-03-19 11:53 | CARD ---
MR#: [id number] Date of Study: 03/19/2020 Ordering Physician: PIETER MARTINEZ, Referring Physician: PIETER MARTINEZ, Tech: Jovita Senior [facility] APPROVED REPORT EXAM: Two-dimensional and M-mode echocardiogram with Doppler and color Doppler. Other Information Quality : Good INDICATION Sick Sinus Syndrome-Pacemaker 2D DIMENSIONS Left Atrium(2D)3.5 (1.6-4.0cm)IVSd0.9 (0.7-1.1cm) Aortic Root(2D)3.4 (2.0-3.7cm)LVDd4.9 (3.9-5.9cm) LVOT Diameter2.2 (1.8-2.4cm)PWd1.0 (0.7-1.1cm) LVDs2.9 (2.5-4.0cm)FS (%) 30.0 % SV82.0 mlLVEF(%)60.0 (>50%) Aortic Valve AoV Peak Howard.170.9cm/sAoV VTI33.6cm AO Peak GR.11.7mmHgLVOT Peak Howard.138.0cm/s AO Mean GR.6mmHgAVA (VMAX)2.95cm2 GAURI (VTI)3.10cm2 Mitral Valve MV E Qftlitxf39.8cm/sMV DECEL PLBA719tp MV A Lbvfqasp355.6cm/sE/A Ratio0.9 Tricuspid Valve TR P. Otogsyck804sc/sRAP JYQKHNYH0crLr TR Peak Gr.09ojHwVIYP79xoZo Pulmonary Vein S1 Bkpqpfmo55.6cm/sD2 Pcwnngsw13.2cm/s LEFT VENTRICLE The left ventricle is normal size. There is borderline concentric left ventricular hypertrophy. The l eft ventricular systolic function is normal and the ejection fraction is within normal range. The Eje ction Fraction is 55-60%. There is normal LV segmental wall motion. Transmitral Doppler flow pattern is Grade I-abnormal relaxation pattern. RIGHT VENTRICLE The right ventricle is normal size. The right ventricular systolic function is normal. There are pace maker leads in the right ventricle and atrium. ATRIA The left atrium size is normal. The right atrium size is normal. The interatrial septum is intact wit h no evidence for an atrial septal defect or patent foramen ovale as noted on 2-D or Doppler imaging. AORTIC VALVE The aortic valve is calcified but opens well. Doppler and Color Flow revealed no significant aortic r egurgitation. There is no significant aortic valvular stenosis. MITRAL VALVE The mitral valve is calcified but opens well. There is no evidence of mitral valve prolapse. There is no mitral valve stenosis. Doppler and Color-flow revealed trace to mild mitral regurgitation. TRICUSPID VALVE The tricuspid valve is normal in structure and function. Doppler and Color Flow revealed trace tricus pid regurgitation. The PA pressure was estimated at 34 mmHg. There is no tricuspid valve stenosis. PULMONIC VALVE The pulmonic valve is not well visualized. Doppler and Color Flow revealed trace to mild pulmonic poncho vular regurgitation. There is no pulmonic valvular stenosis. GREAT VESSELS The aortic root is normal in size. The ascending aorta is normal in size. The IVC is dilated and inder apses >50% with inspiration. PERICARDIAL EFFUSION There is no evidence of significant pericardial effusion. Critical Notification Critical Value: No <Conclusion> The left ventricle is normal size. The left ventricular systolic function is normal and the ejection fraction is within normal range. The Ejection Fraction is 55-60%. There is borderline concentric left ventricular hypertrophy. There are pacemaker leads in the right ventricle and atrium. Doppler and Color Flow revealed no significant aortic regurgitation. There is no significant aortic valvular stenosis. Doppler and Color-flow revealed trace to mild mitral regurgitation. Doppler and Color Flow revealed trace tricuspid regurgitation. The PA pressure was estimated at 34 mmHg. Signed by : Harvey Palomares MD Electronically Approved : 03/19/2020 11:53:15
--- NOTE | 2020-03-19 12:51 | RAD ---
MR#: [id number] Date of Study: 03/19/2020 Ordering Physician: PIETER MARTINEZ, Referring Physician: PIETER MARTINEZ, Tech: Meek Navarro MBA, RDMS, RVT, RDCS, RTR APPROVED REPORT Patient Location: OUT-PATIENT Indications TOBACCO ABUSE Duplex Results A/PTransverseLongitudinal Proximal Aorta 2.5cm1.8cm Mid Aorta 2.5cm1.7cm Distal Aorta 1.6cm1.0cm Doppler VelocityWaveform Proximal Aorta 116.0 cm/sec Aorta Mid. 112.0 cm/sec Distal Aorta 144.0 cm/sec Findings Grayscale images of the abdominal aorta demonstrate mild diffuse atherosclerotic plaque. The proximal aorta measures 2.5 cm, mid at 2.5 cm of the distal aorta at 1.6 cm. Grossly no evidence of dissection, aneurysm. There is evidence of diffuse calcific plaque as noted. Critical Notification Critical Value: No <Conclusion> 1. No evidence of abdominal aortic aneurysm Signed by : Pieter Martinez, Electronically Approved : 03/19/2020 12:51:43
--- NOTE | 2020-03-19 12:58 | RAD ---
MR#: [id number] Date of Study: 03/19/2020 Ordering Physician: PIETER MARTINEZ, Referring Physician: PIETER MARTINEZ, Tech: Meek Navarro MBA, RDMS, RVT, RDCS, RTR APPROVED REPORT Patient Location: OUT-PATIENT Laterality:Bilateral Indications Bruit Grayscale which demonstrate mild diffuse atherosclerotic plaque and intimal hyperplasia. Spectral wa veforms and color Dopplers are grossly within normal limits without any obvious evidence of elevated velocities or obstruction. Overall 0 to less than 50% stenosis based on velocity criteria. Normal I CA to CCA ratios bilaterally. Vertebral velocities are antegrade and within normal limits bilaterally Doppler Spectral Velocity Analysis Right Left pCCA 71/11 cm/spCCA 118/20 cm/s mCCA 92/24 cm/smCCA 101/23 cm/s dCCA 77/19 cm/sdCCA 72/17 cm/s Bulb 56/15 cm/sBulb 65/14 cm/s ECA 125/ cm/sECA 122/ cm/s pICA 66/15 cm/spICA 56/12 cm/s Chad 64/18 cm/smICA 62/19 cm/s dICA 64/18 cm/sdICA 64/19 cm/s Vert. 49/ cm/sVert. 42/ cm/s Subcl. 67/ cm/sSubcl. 100/ cm/s ICA/CCA 0.72ICA/CCA 0.54 Critical Notification Critical Value: No <Conclusion> 1. No evidence of carotid occlusive disease bilaterally Signed by : Pieter Martinez, Electronically Approved : 03/19/2020 12:58:25
== END ==
LOC: ECHO 08:22
PROVIDERS: ATTEND Internal Medicine Cardiovascular Disease
DX: I08.1 Rheumatic disorders of both mitral and tricuspid valves (principal); I49.5 Sick sinus syndrome; I70.0 Atherosclerosis of aorta; Z72.0 Tobacco use; Z95.0 Presence of cardiac pacemaker
CPT/HCPCS: 76770; 93306; 93880